=== PATIENT | male | born 1935 | race Caucasian/White ===

== ENCOUNTER 2016-12-16 06:28 | Day surgery (SDC) | payer MEDICARE, OTHER ==
[~2016-12-16 06:28] MED LIST: Lactated Ringers 1,000 ML IV SCH
[2016-12-16] MEDS ORDERED: Lidocaine 2% 5 ML SDV ONE (07:03)
[2016-12-16] MEDS ORDERED: fentaNYL 100 MCG/2 ML SDV ONE (07:04)
[2016-12-16] MEDS ORDERED: Propofol 200 MG/20 ML SDV ONE (07:04)
--- NOTE | 2016-12-16 07:08 | PCM.PREANE ---
Preanesthetic Assessment - Anesthesia/Transfusion/Family Hx Anesthesia History: Prior Anesthesia Without Reaction Family History of Anesthesia Reaction: No Transfusion History: No Prior Transfusion(s) - Review of Systems General: No Symptoms Pulmonary: No Symptoms Cardiovascular: No Symptoms Gastrointestinal: No symptoms Neurological: No Symptoms Other: Reports: None - Physical Assessment NPO Status Date: 12/15/16 Height: 1.65 m Weight: 91.172 kg ASA Class: 2 Mental Status: Alert & Oriented x3 Airway Class: Mallampati = 2 Dentition: Reports: Dentures, Partial ROM/Head Extension: Full Lungs: Clear to auscultation, Normal respiratory effort Cardiovascular: Regular Rate, Regular Rhythm - Allergies Allergies/Adverse Reactions: Allergies Allergy/AdvReac Type Severity Reaction Status Date / Time niacin Allergy Nausea Verified 12/14/16 14:34 rosuvastatin [From Crestor] Allergy Muscle Verified 12/14/16 14:27 Aches - Anesthesia Plan Pre-Op Medication Ordered: None - Acknowledgements Anesthesia Type Planned: MAC Pt an Appropriate Candidate for the Planned Anesthesia: Yes Alternatives and Risks of Anesthesia Discussed w Pt/Guardian: Yes Pt/Guardian Understands and Agrees with Anesthesia Plan: Yes Additional Comments: 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 PreAnesthesia Questionnaire HEENT History: Reports: Other (See Below) Other HEENT History: wears glasses, has top denture and lower partial Cardiovascular History: Reports: High Cholesterol, Hypertension Gastrointestinal History: Reports: Colon Polyp, Diverticulosis, Hiatal Hernia, Other (See Below) Other Gastrointestinal History: occasional heartburn Genitourinary History: Reports: BPH Endocrine/Metabolic History: Reports: Diabetes, Type II, Hypothyroidism, Obesity /BMI 30+ Oncologic (Cancer) History: Reports: Thyroid - Past Surgical History Head Surgeries/Procedures: Reports: None HEENT Surgical History: Reports: Tonsillectomy GI Surgical History: Reports: Colonoscopy, Hernia, Abdominal, Hernia, Inguinal Endocrine Surgical History: Reports: Thyroidectomy Other Endocrine Surgeries/Procedures: partial thyroidectomy for thyroid cancer Musculoskeletal Surgical History: Reports: Other (See Below) Other Musculoskeletal Surgeries/Procedures:: hx amputation of thumb with neurectomy - SUBSTANCE USE Smoking Status *Q: Former Smoker Tobacco Use Within Last Twelve Months: No Recreational Drug Use History: No - HOME MEDS Home Medications: Home Meds Ascorbic Acid [Vitamin C] 500 mg PO DAILY 12/14/16 [History] Aspirin [Dixon Aspirin] 81 mg PO DAILY 12/14/16 [History] Cholecalciferol (Vitamin D3) [Vitamin D3] 1,000 unit PO DAILY 12/14/16 [History] Cyanocobalamin (Vitamin B-12) [Vitamin B-12] 1,000 mcg PO DAILY 12/14/16 [ History] Docusate Sodium [Stool Softener] 100 mg PO ASDIRECTED PRN 12/14/16 [History] Flaxseed 1 packet PO DAILY 12/14/16 [History] Gluc 2KCl/Chondr/Vilma Hy/Hy Ac [Glucosamine & Chondroitin Cap] 1 tab PO BID [History] Levothyroxine Sodium [Synthroid] 25 mg PO DAILY 12/14/16 [History] Lisinopril 10 mg PO DAILY 12/14/16 [History] Simvastatin [Zocor] 10 mg PO BEDTIME 12/14/16 [History] Tamsulosin HCl [Flomax] 0.4 mg PO DAILY 12/14/16 [History] Viagra 1 tab PO ASDIRECTED PRN 12/14/16 [History] Vitamin B Complex 1 tab PO DAILY 12/14/16 [History] glipiZIDE [Glucotrol] 5 mg PO DAILY 12/14/16 [History] metFORMIN HCl [Metformin HCl ER] 1,000 mg PO BID 12/14/16 [History] traZODone HCl [Trazodone HCl] 100 mg PO BEDTIME 12/14/16 [History] - CURRENT (IN HOUSE) MEDS Current Meds: Current Medications Lactated Ringer's (Ringers, Lactated) 1,000 mls @ 125 mls/hr IV ASDIRECTED [facility]
[2016-12-16] MEDS ORDERED: Phenylephrine/Normal Saline 100 MCG/ML 10 ML Syringe ONE (07:50)
[2016-12-16] MEDS ORDERED: Lactated Ringers 1,000 ML IV SCH (08:15)
--- NOTE | 2016-12-16 08:15 | PCM.OPNOTE ---
- General Post-Op/Procedure Note Date of Surgery/Procedure: 12/16/16 Operative Procedure(s): Colonoscopy w/ cold transverse colon polypectomy Pre Op Diagnosis: Personal history of colon polyps. Change in bowel habits. Post-Op Diagnosis: Transverse colon polyp. Sigmoid diverticulosis. Anesthesia Technique: MAC (ASA II) Primary Surgeon: Ori Duque Condition: Good Free Text/Narrative:: Dictation [id number] CPT [id number]
[2016-12-16 09:13] VITALS: BP 116/60
--- NOTE | 2016-12-16 11:14 | OR ---
SURGEON: Ori Duque M.D. DATE OF PROCEDURE: 12/16/2016 OPERATION PERFORMED: Colonoscopy with cold transverse colon polypectomy. ANESTHESIA: MAC. ASA CLASSIFICATION: II. PREOPERATIVE DIAGNOSES: 1. Recent change in bowel habits. 2. Personal history of colon polyps. POSTOPERATIVE DIAGNOSES: 1. Transverse colon polyp. 2. Sigmoid diverticulosis. DESCRIPTION OF PROCEDURE: The patient was taken to the endoscopy room and positioned on the endoscopy table in the left lateral decubitus position. Time-out was called for appropriate identification of patient and procedure. Monitored anesthesia care was provided. The colonoscope was inserted into the rectum and advanced with minimal difficulty to the cecum. The cecum was identified by external pressure and internal landmarks. The colonoscope was retroflexed in the cecum to visualize the ascending colon. The colonoscope was then straightened and slowly withdrawn. The cecum, ascending colon, and hepatic flexure showed no tumors, polyps, or diverticula. One polyp was encountered in the transverse colon and removed with multiple bites of the cold biopsy forceps. The remainder of the transverse colon, splenic flexure, and descending colon showed no other tumors, polyps, or diverticula. Sigmoid colon again demonstrated moderate diverticular change. No stricture, spasm, or bleeding was noted. No polyps were encountered in the sigmoid colon. The colonoscope was withdrawn to the rectum and retroflexed to visualize the anal orifice from above. Again, no tumors or polyps were seen and there were no acute hemorrhoidal changes. The colonoscope was then straightened, the rectum aspirated, and the colonoscope removed. The patient tolerated the procedure well and was taken to recovery room in stable condition. JES PATEL /[id number] cc: [facility] DIPAK
--- NOTE | 2016-12-16 11:43 | PCM48HPAN ---
Post Anesthesia Note - EVALUATION WITHIN 48HRS OF ANESTHETIC Vital Signs in Normal Range: Yes Patient Participated in Evaluation: Yes Respiratory Function Stable: Yes Airway Patent: Yes Cardiovascular Function Stable: Yes Hydration Status Stable: Yes Pain Control Satisfactory: Yes Nausea and Vomiting Control Satisfactory: Yes Mental Status Recovered: Yes
== END 2016-12-16 08:45 | disposition home or self-care (01) ==
LOC: MW.SDS 06:28
PROVIDERS: ATTEND Surgery
PROC: 0DBL8ZZ Excision of Transverse Colon, Via Natural or Artificial Opening Endoscopic (ICD-10-PCS; principal; 2016-12-16)
DX: Z12.11 Encounter for screening for malignant neoplasm of colon (principal); D12.3 Benign neoplasm of transverse colon; K57.30 Diverticulosis of large intestine without perforation or abscess without bleeding; Z86.010 Personal history of colon polyps; I10 Essential (primary) hypertension; E78.00 Pure hypercholesterolemia, unspecified; E89.0 Postprocedural hypothyroidism; E11.9 Type 2 diabetes mellitus without complications; G47.33 Obstructive sleep apnea (adult) (pediatric); E66.9 Obesity, unspecified; N40.1 Benign prostatic hyperplasia with lower urinary tract symptoms; R35.1 Nocturia; Z88.8 Allergy status to other drugs, medicaments and biological substances; Z79.82 Long term (current) use of aspirin; Z79.84 Long term (current) use of oral hypoglycemic drugs; Z79.899 Other long term (current) drug therapy; Z89.019 Acquired absence of unspecified thumb; Z90.89 Acquired absence of other organs; Z98.890 Other specified postprocedural states; Z68.33 Body mass index [BMI] 33.0-33.9, adult; Z87.891 Personal history of nicotine dependence
CPT/HCPCS: 45380; 82962; J3010; J7120; 88305; J2704

== ENCOUNTER 2022-09-09 17:05 | Emergency (ER) | payer OTHER, MEDICARE ==
[2022-09-09] MEDS ORDERED: Sodium Chloride 0.9% 500 ML IV ONE (18:56)
[2022-09-09 19:07] LABS: CORONAVIRUS COVID-19 NAA NEGATIVE (NEGATIVE); INFLUENZA A NAA NEGATIVE (NEGATIVE); INFLUENZA B NAA NEGATIVE (NEGATIVE)
[2022-09-09 19:19] LABS: CARBON DIOXIDE,CO2 20.6 mmol/L (21.0-32.0); POTASSIUM,K 3.4 mmol/L (3.5-5.1)
[2022-09-09] MEDS ORDERED: Aspirin 81 MG Tab.Chew PO ONE (19:55)
[2022-09-09] MEDS ORDERED: Clopidogrel 75 MG Tab PO ONE (20:08)
[2022-09-09] MEDS ORDERED: Heparin Sodium 5,000 Units/ML Vial IVPUSH ONE (20:08)
[2022-09-09] MEDS ORDERED: Heparin Sodium/0.45% NaCl 500 ML IV SCH (20:15)
[2022-09-09 22:56] VITALS: BP 127/87; PULSE 111
== END 2022-09-09 22:11 ==
LOC: MW.ED 17:05
DX: I25.2 Old myocardial infarction (principal); I10 Essential (primary) hypertension; E78.00 Pure hypercholesterolemia, unspecified; E11.9 Type 2 diabetes mellitus without complications; E03.9 Hypothyroidism, unspecified; E66.9 Obesity, unspecified; Z68.31 Body mass index [BMI] 31.0-31.9, adult; Z88.1 Allergy status to other antibiotic agents; Z88.8 Allergy status to other drugs, medicaments and biological substances; Z79.899 Other long term (current) drug therapy; Z79.82 Long term (current) use of aspirin; Z79.84 Long term (current) use of oral hypoglycemic drugs; Z20.822 Contact with and (suspected) exposure to COVID-19
CPT/HCPCS: 0240U; 36415; 71045; 80053; 81001; 83605; 83690; 83735; 83880; 84484; 85025; 85730; 93005; 96365; 96366; 96375; 99285; A9270; J1644; J7030; 93010; 99291

== ENCOUNTER 2023-04-04 16:05 | Emergency (ER) | payer OTHER ==
[2023-04-04] MEDS ORDERED: Haloperidol Lactate 5 MG/ML SDV IM ONE (16:47)
[2023-04-04] MEDS ORDERED: LORazepam 2 MG/ML SDV IVPUSH ONE (16:48)
[2023-04-04 17:36] LABS: BASOPHILS ABSOLUTE AUTO 0.01 K/uL (0.00-0.20); BASOPHILS PERCENT AUTO 0.1 % (0.0-1.0); EOSINOPHILS ABSOLUTE AUTO 0.01 K/uL (0.00-0.45); EOSINOPHILS PERCENT AUTO 0.1 % (0.0-6.0); HEMATOCRIT 35.5 % (42.0-52.0); IMMATURE GRAN ABSOLUTE AUTO 0.01 K/uL (0.00-0.05); IMMATURE GRAN PERCENT AUTO 0.1 % (0.0-0.4); LYMPHOCYTES ABSOLUTE AUTO 0.21 K/uL (1.00-4.80); LYMPHOCYTES PERCENT AUTO 3.1 % (24.0-44.0); MEAN CORPUSCULAR HEMOGLOBIN 30.2 pg (28.0-32.0); MEAN CORPUSCULAR HGB CONC 33.8 g/dL (32.0-36.0); MEAN CORPUSCULAR VOLUME 89.2 fL (83.0-99.0); MONOCYTES ABSOLUTE AUTO 0.11 K/uL (0.00-0.80); MONOCYTES PERCENT AUTO 1.6 % (0.0-8.0); NEUTROPHILS ABSOLUTE AUTO 6.4 K/uL (1.8-7.7); PLATELET COUNT,PLT 149 K/uL (150-400); RED BLOOD CELL COUNT 3.98 M/uL (4.52-5.90); WHITE BLOOD CELL COUNT,WBC 6.78 K/uL (3.9-11.3)
[2023-04-04 17:38] LABS: INR 1.04 (0.86-1.11); PTT,PARTIAL THROMBOPLSTIN TIME 23.2 SEC (23.9-30.7)
[2023-04-04 18:03] LABS: A/G RATIO 0.9 (0.9-1.6); ALBUMIN 3.5 g/dL (3.4-5.0); BILIRUBIN TOTAL 0.5 mg/dL (0.2-1.0); CARBON DIOXIDE,CO2 24.2 mmol/L (21.0-32.0); CREATININE 2.4 mg/dL (0.8-1.3); EST CRCL DRUG DOSING (CG) 21.28 mL/min; POTASSIUM,K 4.4 mmol/L (3.5-5.1); PROTEIN TOTAL,TP 7.2 g/dL (6.4-8.2)
[2023-04-04 19:54] VITALS: BP 126/62; PULSE 82
== END 2023-04-04 19:52 ==
LOC: MW.ED 16:05
DX: R07.9 Chest pain, unspecified (principal); I10 Essential (primary) hypertension; E78.00 Pure hypercholesterolemia, unspecified; E11.9 Type 2 diabetes mellitus without complications; E03.9 Hypothyroidism, unspecified; E66.9 Obesity, unspecified; Z68.44 Body mass index [BMI] 60.0-69.9, adult; Z79.899 Other long term (current) drug therapy; Z79.84 Long term (current) use of oral hypoglycemic drugs; Z88.8 Allergy status to other drugs, medicaments and biological substances; Z88.1 Allergy status to other antibiotic agents
CPT/HCPCS: 36415; 70450; 80053; 82947; 84484; 85025; 85610; 85730; 93005; 96372; 96374; 99285; J1630; J2060; 93010; 99284

== ENCOUNTER 2023-07-26 18:46 | Emergency (ER) | payer OTHER, MEDICARE ==
[2023-07-26] MEDS ORDERED: Sodium Chloride 0.9% 2.5 ML Syringe FLUSH PRN (19:11)
[2023-07-26] MEDS ORDERED: Sodium Chloride 0.9% 10 ML Syringe FLUSH PRN (19:11)
[2023-07-26 19:17] LABS: BASOPHILS ABSOLUTE AUTO 0.03 K/uL (0.00-0.20); BASOPHILS PERCENT AUTO 0.4 % (0.0-1.0); EOSINOPHILS ABSOLUTE AUTO 0.11 K/uL (0.00-0.45); EOSINOPHILS PERCENT AUTO 1.4 % (0.0-6.0); HEMATOCRIT 37.1 % (42.0-52.0); HEMOGLOBIN 12.6 g/dL (14.0-18.0); IMMATURE GRAN ABSOLUTE AUTO 0.03 K/uL (0.00-0.05); IMMATURE GRAN PERCENT AUTO 0.4 % (0.0-0.4); LYMPHOCYTES ABSOLUTE AUTO 0.97 K/uL (1.00-4.80); LYMPHOCYTES PERCENT AUTO 12.7 % (24.0-44.0); MEAN CORPUSCULAR HEMOGLOBIN 30.4 pg (28.0-32.0); MEAN CORPUSCULAR VOLUME 89.4 fL (83.0-99.0); MEAN PLATELET VOLUME 9.5 fL (9.4-12.4); MONOCYTES ABSOLUTE AUTO 1.15 K/uL (0.00-0.80); MONOCYTES PERCENT AUTO 15.1 % (0.0-8.0); NEUTROPHILS ABSOLUTE AUTO 5.33 K/uL (1.80-7.70); PLATELET COUNT,PLT 197 K/uL (150-400); RED BLOOD CELL COUNT 4.15 M/uL (4.52-5.90); WHITE BLOOD CELL COUNT,WBC 7.62 K/uL (3.9-11.3)
[2023-07-26 19:38] LABS: A/G RATIO 0.8 (0.9-1.6); ALANINE AMINOTRANSFERASE,ALT 15 IU/L (14-63); ALBUMIN 3.4 g/dL (3.4-5.0); ALKALINE PHOSPHATASE 102 U/L (46-116); ASPARTATE AMNIOTRANSFERASE,AST 18 IU/L (15-37); BILIRUBIN TOTAL 0.3 mg/dL (0.2-1.0); BLOOD UREA NITROGEN,BUN 47 mg/dL (7.0-18.0); CALCIUM 9.3 mg/dL (8.5-10.1); CARBON DIOXIDE,CO2 25.5 mmol/L (21.0-32.0); CHLORIDE,CL 102 mmol/L (98-107); CREATININE 2.7 mg/dL (0.8-1.3); GLUCOSE RANDOM 172 mg/dL (74-106); PROTEIN TOTAL,TP 7.6 g/dL (6.4-8.2); SODIUM,NA 140 mmol/L (136-148)
[2023-07-26 19:40] LABS: ESTIMATED GFR 22 mL/min (>60); ETHANOL BLOOD MEDICAL < 3.0 mg/dL
[2023-07-26 20:02] LABS: LACTIC ACID 1.3 mmol/L (0.4-2.0)
[2023-07-26 20:44] LABS: APPEARANCE,URINE CLEAR; BILIRUBIN,URINE NEGATIVE (NEGATIVE); COLOR,URINE YELLOW; GLUCOSE,URINE NEGATIVE (NEGATIVE); KETONES,URINE NEGATIVE (NEGATIVE); LEUKOCYTE ESTERASE,URINE NEGATIVE (NEGATIVE); NITRITE,URINE NEGATIVE (NEGATIVE); OCCULT BLOOD,URINE TRACE-INTACT (NEGATIVE); PH,URINE 5.5 (5.0-8.0); PROTEIN,URINE NEGATIVE (NEGATIVE); UROBILINOGEN,URINE 0.2 EU/dL (<2.0)
[2023-07-26 20:51] LABS: BACTERIA,URINE RARE (NEGATIVE); EPITHELIAL CELLS,URINE RARE (NONE-FEW); RBC,URINE 0-2 (0-2/HPF); WBC,URINE 0-1 (0-5/HPF)
[2023-07-26 21:16] LABS: CORONAVIRUS COVID-19 NAA NEGATIVE (NEGATIVE); INFLUENZA A NAA POSITIVE (NEGATIVE); INFLUENZA B NAA NEGATIVE (NEGATIVE); RESPIRATORY SYNCYTIAL VIR NAA NEGATIVE (NEGATIVE)
[2023-07-26] MEDS ORDERED: Lidocaine 4% 1 each Patch TOP PRN (21:29)
[2023-07-26 22:19] VITALS: BP 134/74; PULSE 74
[2023-07-26] MEDS: Oseltamivir 75 MG Cap PO ONE ×2 (22:21→22:42)
[2023-07-26] MEDS ORDERED: Oseltamivir 30 MG Cap PO ONE ×2 (22:30)
== END 2023-07-26 22:21 | disposition home or self-care (01) ==
LOC: MW.ED 18:46
DX: J11.1 Influenza due to unidentified influenza virus with other respiratory manifestations (principal); M25.511 Pain in right shoulder; M25.551 Pain in right hip; M25.552 Pain in left hip; I10 Essential (primary) hypertension; E78.00 Pure hypercholesterolemia, unspecified; E11.9 Type 2 diabetes mellitus without complications; E03.9 Hypothyroidism, unspecified; E66.9 Obesity, unspecified; Z79.899 Other long term (current) drug therapy; Z79.84 Long term (current) use of oral hypoglycemic drugs; Z79.82 Long term (current) use of aspirin; Z79.02 Long term (current) use of antithrombotics/antiplatelets; Z88.8 Allergy status to other drugs, medicaments and biological substances; Z91.048 Other nonmedicinal substance allergy status; Z68.27 Body mass index [BMI] 27.0-27.9, adult; W19.XXXA Unspecified fall, initial encounter
CPT/HCPCS: 0241U; 36415; 70450; 71045; 72125; 72170; 73030; 80053; 80307; 81001; 83605; 84484; 85025; 93005; 99284; A9270; J3490; 93010; 99283

== ENCOUNTER 2023-12-29 00:53 | Observation (INO) | payer OTHER, MEDICARE ==
[2023-12-29] MEDS: Acetaminophen 500 MG Tab PO ONE (02:51)
[2023-12-29 10:53] VITALS: BP 151/63; PULSE 50
== END 2023-12-29 15:41 | disposition home or self-care (01) ==
LOC: MW.ED 00:53 → MW.MS 03:13
PROVIDERS: ADMIT Internal Medicine; ATTEND Internal Medicine
DX: S06.5X0A Traumatic subdural hemorrhage without loss of consciousness, initial encounter (principal); E78.5 Hyperlipidemia, unspecified; I10 Essential (primary) hypertension; I25.10 Atherosclerotic heart disease of native coronary artery without angina pectoris; K21.9 Gastro-esophageal reflux disease without esophagitis; F41.9 Anxiety disorder, unspecified; F32.A Depression, unspecified; E11.9 Type 2 diabetes mellitus without complications; E03.9 Hypothyroidism, unspecified; D64.9 Anemia, unspecified; Z91.81 History of falling; Z79.899 Other long term (current) drug therapy; Z79.890 Hormone replacement therapy; Z79.82 Long term (current) use of aspirin; Z88.8 Allergy status to other drugs, medicaments and biological substances; W19.XXXA Unspecified fall, initial encounter
CPT/HCPCS: 70450; 70450-26; 72125; 72125-26; 99235; 99291; A9270-GY; G0378